=== PATIENT | male | born 1945 | race Caucasian/White ===

== ENCOUNTER 2018-04-08 10:02 | Day surgery (SDC) | payer MEDICARE, BC ==
[2018-04-08] MEDS ORDERED: LIDOCAINE 2% MDV (20MG/ML) 20ML VIAL IV ONE (10:03)
[2018-04-08] MEDS ORDERED: PROPOFOL 10 MG/ML VIAL IV ONE (10:03)
[2018-04-08] MEDS ORDERED: FENTANYL PF 100MCG/2ML VIAL IV ONE (10:03)
--- NOTE | 2018-04-09 10:20 | Operative Note ---
DATE OF SURGERY: 04/08/18 OPERATION: ESOPHAGOGASTRODUODENOSCOPY with biopsy. PREOPERATIVE DIAGNOSIS: Roth's esophagus. POSTOPERATIVE DIAGNOSIS: Roth's esophagus. PROCEDURE: After informed consent was obtained from the patient, he was placed in the left lateral decubitus position in the endoscopy suite, sedated and monitored by the department of anesthesia. A well-lubricated HOR475 gastroscope was placed in the posterior oropharynx and under direct visualization passed to the proximal esophagus. The endoscope was advanced through the proximal, mid, and distal esophagus. There was proximal migration and irregularity of the squamocolumnar border consistent with a diagnosis of Roth's esophagus. No nodularity, ulcers, or mass lesions are seen. No varices are seen. The gastric body demonstrated normal distensibility, normal rugal folds. The body and the antrum were unremarkable. The duodenal bulb and sweep were unremarkable. J-turn views of the proximal stomach were unrevealing other than a few gastric polyps. The endoscope was then straightened. Distal esophageal biopsies were obtained. The endoscope was removed from the patient with no new findings noted. RECOMMENDATIONS: I would suggest the patient continue on his proton pump inhibitor. If no dysplasia is found, a repeat upper endoscopy in 3 years would be recommended. As always, thank you for allowing me to participate in the healthcare of your patients. CC: ARNAV NAVARRO D.O. PHILLIP
== END 2018-04-08 10:48 | disposition home or self-care (01) ==
LOC: HOP 10:02
PROVIDERS: ATTEND Internal Medicine Gastroenterology
DX: K22.70 Barrett's esophagus without dysplasia (principal); K31.7 Polyp of stomach and duodenum; I10 Essential (primary) hypertension; E78.00 Pure hypercholesterolemia, unspecified; E11.9 Type 2 diabetes mellitus without complications

== ENCOUNTER 2019-04-07 08:50 | Day surgery (SDC) | payer MEDICARE, BC ==
[~2019-04-07 08:50] MED LIST: ACETAMINOPHEN 1,000 MG/100 ML BTL IVPB ONE
[2019-04-07] MEDS ORDERED: MIDAZOLAM HCL 2MG/2ML VIAL IV ONE (08:51)
[2019-04-07] MEDS ORDERED: PROPOFOL 10 MG/ML VIAL IV ONE (08:51)
[2019-04-07] MEDS ORDERED: ONDANSETRON HCL IV 4 MG/2 ML VIAL IVP ONE (08:51)
[2019-04-07] MEDS ORDERED: FENTANYL PF 100MCG/2ML VIAL IV ONE (08:51)
[2019-04-07] MEDS ORDERED: LIDOCAINE 2% MDV (20MG/ML) 20ML VIAL IV ONE (08:51)
[2019-04-07] MEDS ORDERED: DESFLURANE 240 ML BTL INH ONE (08:51)
[2019-04-07] MEDS ORDERED: KETOROLAC 30 MG/ML VIAL IVP ONE (08:51)
[2019-04-07] MEDS ORDERED: RINGERS SOLUTION,LACTATED 1,000 ML IV ONE ×2 (09:20→09:58)
[2019-04-07] MEDS ORDERED: BUPIVACAINE 0.25% W/EPI MPF 30ML VIAL SQ ONE (10:41)
--- NOTE | 2019-04-07 11:36 | Operative Note ---
DATE OF SURGERY: 04/07/2019 SURGEON: Jose Ervin D.O. REFERRING PHYSICIAN: Moreno Ivory D.O. PREOPERATIVE DIAGNOSIS: 1. TORN MEDIAL MENISCUS RIGHT KNEE. 2. CHONDROMALACIA RIGHT KNEE. POSTOPERATIVE DIAGNOSIS: 1. TORN MEDIAL AND LATERAL MENISCUS RIGHT KNEE. 2. 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 3. TRIGGER FINGER OF THE RIGHT RING FINGER. OPERATION: 1. ARTHROSCOPIC PARTIAL MEDIAL AND LATERAL MENISCECTOMY OF THE RIGHT KNEE. 2. ARTHROSCOPIC CHONDROPLASTY OF THE MEDIAL FEMORAL CONDYLE AND PATELLA OF THE RIGHT KNEE. 3. TENOTOMY OF THE A1 TANA USING 2.5 LOOP MAGNIFICATION OF THE RIGHT RING FINGER. DESCRIPTION: This 74-year-old male was taken to the Operating Room and placed in a supine position on the operating room table. A general anesthetic was administered and the right upper extremity was elevated, prepped with Hibiclens and draped in the usual sterile fashion. It was exsanguinated and the tourniquet inflated to 250 mmHg. A palmar incision was utilized by making a longitudinal incision overlying the A1 tana of the right ring finger. Dissection was carried down through the skin and subcutaneous tissue. The proximal edge of the A1 tana was easily identified, it was then incised and split from its proximal to its distal margin under direct vision protecting the neurovascular structures. The tendon demonstrated some very minimal fraying of the sublimis tendon, but it was not further disturbed. With the tendon completely freed up the finger was taken through range of motion with no evidence of catching or locking of the finger. The wound was irrigated with lactated Ringer's solution and closed with interrupted 6-0 nylon suture. Sterile dressings were applied. We then directed our attention to the right knee and the right lower extremity was elevated and the tourniquet inflated to 300 mmHg. Arthroscopic knee cabrera was applied and the right knee was prepped with Hibiclens and draped in the usual sterile fashion. An inferolateral portal was established for the 4 mm arthroscope and initial evaluation of the joint demonstrated chondromalacia of the patella with Grade 2 changes being noted there. Chondroplasty was performed to stabilize the articular cartilage through an inferomedial portal. Once that had been accomplished the gutters were evaluated and found to be normal. The trochlea also appeared to be normal. The medial compartment was entered and evidence of previous partial medial meniscectomy was noted. The patient did demonstrate, however, a new tear at the posterior horn at approximately the 11:00 o'clock position. The meniscus had been frayed and the superior portion of the leaflet deformed and pushed posteriorly with intrasubstance tearing. We then used the basket forceps and rotating shaver to resect unstable fragments of the medial meniscus posteriorly. It was reprobed and confirmed to be stable. Some of the meniscus had actually flipped back behind the medial femoral condyle and that was also retrieved and removed. There was Grade 3 chondromalacia of the entire weight bearing surface of the medial femoral condyle with some loose fragment articular cartilage at its lateral edge and this was trimmed with the rotating shaver. The intercondylar notch was examined and found to be essentially normal. The lateral compartment was entered and multiple small vertical tears of the lateral meniscus were present in the body of the meniscus utilizing the rotating shaver. These were resected to stable rim. It was reprobed and confirmed to be stable. No articular cartilage defects were present in the lateral compartment. The wound was copiously irrigated with lactated Ringer's solution and suctioned and all of the instruments were removed after we had re-evaluated and found no additional findings. The arthroscopic puncture sites were infiltrated with 0.25% Marcaine with Epinephrine, sterile dressings were applied, tourniquet and knee cabrera were released and the patient was taken to the Recovery Room in satisfactory condition. 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 There was also complex tear of the posterior horn of the medial meniscus. There was also degenerative tearing of the body of the lateral meniscus as described above. The patient also demonstrated some minimal fraying of the sublimis tendon to the right ring finger and it was otherwise unremarkable. JOB NUMBER: [id number] MTDD
[2019-04-07] MEDS ORDERED: HYDROCODONE/APAP 5/325MG TABLET PO ONE (11:38)
== END 2019-04-07 11:52 | disposition home or self-care (01) ==
LOC: SUR 08:50
PROVIDERS: ATTEND Orthopaedic Surgery
DX: S83.241A Other tear of medial meniscus, current injury, right knee, initial encounter (principal); S83.281A Other tear of lateral meniscus, current injury, right knee, initial encounter; M65.341 Trigger finger, right ring finger; I10 Essential (primary) hypertension; E78.00 Pure hypercholesterolemia, unspecified; E11.9 Type 2 diabetes mellitus without complications
CPT/HCPCS: 36416; 82948; J1885; J2405; J7120